=== PATIENT | female | born 1945 | race Caucasian/White ===

== ENCOUNTER 2020-12-28 14:38 | Emergency (ER) | payer MEDICARE, OTHER ==
[2020-12-28] MEDS ORDERED: Ondansetron 4 MG Tab.DIS PO ONE (15:05)
[2020-12-28] MEDS ORDERED: Meclizine 12.5 MG Tab PO ONE ×2 (15:05→15:06)
--- NOTE | 2020-12-28 15:25 | EDM.PDOC ---
ED HPI GENERAL MEDICAL PROBLEM - General Chief Complaint: Head Injury Stated Complaint: FELL DOWN STEPS Time Seen by Provider: 12/28/20 15:00 Source of Information: Reports: Patient, RN, RN Notes Reviewed History Limitations: Reports: No Limitations - History of Present Illness INITIAL COMMENTS - FREE TEXT/NARRATIVE: Mica is a 75 y/o female who presents to the ED via personal vehicle for complaints of fall down two steps and is now bleeding from her posterior scalp. The patient notes she tripped while descending her stairs after her shoe became caught. She denies loss of consciousness but does note she struck her head. She is not on blood thinners. The patient reports dizziness and nausea since the event. She denies projectile vomiting or vision changes. She denies history of head trauma. The patient does report pain to her right posterior wrist and denies pain to all other areas of her body. She has full sensory and motor function to her right wrist and distal to the pain. - Related Data Allergies Allergy/AdvReac Type Severity Reaction Status Date / Time Sulfa (Sulfonamide Allergy Other Verified 12/28/20 14:57 Antibiotics) diphenhydramine AdvReac Other Verified 12/28/20 14:57 [From Benadryl] meperidine [From Demerol] AdvReac Other Verified 12/28/20 14:57 Past Medical History Cardiovascular History: Reports: High Cholesterol, Hypertension Social & Family History - Family History Family Medical History: No Pertinent Family History - Tobacco Use Tobacco Use Status *Q: Current Some Day Tobacco User Years of Tobacco use: 50 Packs/Tins Daily: 0.5 - Caffeine Use Caffeine Use: Reports: Coffee - Recreational Drug Use Recreational Drug Use: No ED ROS GENERAL - Review of Systems Review Of Systems: Comprehensive ROS is negative, except as noted in HPI. ED EXAM, HEAD INJURY - Physical Exam Exam: See Below Exam Limited By: No Limitations General Appearance: Alert, Mild Distress, Other (Eyes closed due to dizziness) Head: Normocephalic, Scalp Lacerations (5mm superficial laceration to posterior scalp), Scalp Swelling (Surrounding laceration), Scalp Tenderness. No: Scalp Abrasions, Scalp Ecchymosis, Scalp Hematoma, Active Bleeding, Paul's Sign, Flap, Facial Abrasions, Facial Ecchymosis, Facial Lacerations, Facial Swelling, Sinus Tenderness, Facial Tenderness, Raccoon Eyes Nexus Criteria: No: Posterior, Midline Cervical Tenderness, Evidence of Intoxication, Altered Level of Consciousness, Focal Neurological Deficit, Painful Distraction Injuries Eyes: Bilateral Eye: Nystagmus (Jerk with lateral gaze), PERRL (3mm) Ears: Normal External Exam, Normal Canal, Hearing Grossly Normal, Normal TMs Nose: Normal Inspection, Normal Mucousa, No Blood Throat/Mouth: Normal Lips, Normal Teeth, Normal Gums, Normal Oropharynx, Normal Voice, No Airway Compromise, Dental Tenderness (To right jaw) Neck: Full Range of Motion, Normal Alignment, Normal Inspection, Stiff Neck (To right). No: Limited Range of Motion, Muscle Spasm, Painful Range of Motion, Spinous Processes Tender, Tender Lateral, Tender Midline Respiratory: No Respiratory Distress, Lungs Clear, Normal Breath Sounds, No Accessory Muscle Use, Chest Non-Tender Cardiovascular: Normal Peripheral Pulses, Regular Rate, Rhythm, No Edema, No Gal lop, No JVD, No Murmur, No Rub GI/Abdominal Exam: Normal Bowel Sounds, Soft, Non-Tender, No Distention, No Abnormal Bruit, No Mass, Pelvis Stable Back Exam: Normal Inspection, Full Range of Motion Extremities: Normal Range of Motion, Normal Capillary Refill, Arm Pain (To right posterior wrist), Redness (To all knuckels; Patient reports history of RA). No: Joint Swelling, Increased Warmth, Mottled, Pallor Neurologic: shrub planter II-XII nml As Tested, No Motor/Sensory Deficits, Alert, Normal Mood/Affect, Oriented x 3, Other (Dizziness). No: Abnormal Gait, Aphasia, Facial Droop, Motor Weakness, Disoriented x 3 Skin: Normal Color, Warm/Dry. No: Diaphoresis, Mottled, Pallor - Freedom Coma Score Best Eye Response (Freedom): (4) Open Spontaneously Best Verbal Response (Jordin): (5) Oriented Best Motor Response (Jordin): (6) Obeys Commands Course - Vital Signs Last Recorded V/S: Last Vital Signs Temp 97.2 F 12/28/20 14:45 Pulse 65 12/28/20 14:45 Resp 16 12/28/20 14:45 BP 173/94 H 12/28/20 14:45 Pulse Ox 100 12/28/20 14:45 - Orders/Labs/Meds Meds: Medications Discontinued Medications Generic Name Dose Route Start Last Admin Trade Name Freq PRN Reason Stop Dose Admin Meclizine HCl 12.5 mg 12/28/20 15:05 Meclizine 12.5 Mg Tab PO 12/28/20 15:06 ONETIME ONE Meclizine HCl 12.5 mg 12/28/20 15:06 Meclizine 12.5 Mg Tab PO 12/28/20 15:07 ONETIME ONE Ondansetron HCl 4 mg 12/28/20 15:05 12/28/20 15:16 Ondansetron 4 Mg Tab.Dis PO 12/28/20 15:06 4 mg ONETIME ONE Administration - Radiology Interpretation Free Text/Narrative:: [facility] Final Radiology Report Call: [phone] assistance Online chat: [email or web address] Name: MICA REYES Age: 75Years F Date: 12/28/2020 SSN: -- : 1945 Study: CT HEAD WO CONT Requesting Physician: Rachel Cm Images: 146 Addl Studies: Provided Clinical History: Fall down two stairs, struck head Contrast: Without Contrast Medium: Contrast Amount: Contrast Method: Page 1 of 2 PROCEDURE INFORMATION: Exam: CT Head Without Contrast Exam date and time: 12/28/2020 3:28 PM Age: 75 years old Clinical indication: Injury or trauma; Fall; Blunt trauma (contusions or hematomas); Consciousness not specified; Additional info: Fall down two stairs, struck head TECHNIQUE: Imaging protocol: Computed tomography of the head without contrast. Radiation optimization: All CT scans at this facility use at least one of these dose optimization techniques: automated exposure control; mA and/or kV adjustment per patient size (includes targeted exams where dose is matched to clinical indication); or iterative reconstruction. COMPARISON: No relevant prior studies available. FINDINGS: Brain: Age-related atrophy and chronic white matter ischemic changes, with no evidence of an acute intracranial abnormality. No hemorrhage, mass effect or midline shift. Cerebral ventricles: No ventriculomegaly. Paranasal sinuses: Visualized sinuses are unremarkable. No fluid levels. Mastoid air cells: Visualized mastoid air cells are well aerated. Bones/joints: No acute fracture. Soft tissues: Soft tissue swelling noted right posterior parietal region. IMPRESSION: 1. Soft tissue swelling noted right posterior parietal region. 2. Age-related atrophy and chronic white matter ischemic changes, with no rashawn dence of an acute intracranial abnormality. 3. No hemorrhage, mass effect or midline shift. Thank you for allowing us to participate in the care of your patient. Dictated and Authenticated by: Rajesh Nam DO 12/28/2020 3:45 PM Central Time ([place] & [place]) [facility] - [facility] Final Radiology Report Call: [phone] assistance Online chat: [email or web address] Name: MICA REYES Age: 75Years F Date: 12/28/2020 SSN: -- : 1945 Study: CR WRIST COMP MIN 3V RT Requesting Physician: Rachel Cm Images: 3 Addl Studies: Provided Clinical History: Fall down two stairs, struck head Contrast: Contrast Medium: Contrast Amount: Contrast Method: CONFIDENTIALITY STATEMENT This report is intended only for use by the referring physician, and only in accordance with law. If you received this in error, call [phone]. Page 1 of 1 PROCEDURE INFORMATION: Exam: XR Right Wrist Exam date and time: 12/28/2020 3:31 PM Age: 75 years old Clinical indication: Pain; Wrist; Right; Additional info: Fall down two stairs, struck head TECHNIQUE: Imaging protocol: XR Right wrist. Views: 3 or more views. COMPARISON: No relevant prior studies available. FINDINGS: Bones/joints: There is no evidence of acute fracture. There is no evidence of joint malalignment or dislocation. Soft tissues: There are no soft tissue masses or fluid collections. IMPRESSION: 1. No evidence of acute fracture. 2. No evidence of acute dislocation. Thank you for allowing us to participate in the care of your patient. Dictated and Authenticated by: Rajesh Nam DO 12/28/2020 3:49 PM Central Time ([place] & [place]) - Re-Assessments/Exams Free Text/Narrative Re-Assessment/Exam: 12/28/20 Patient verbalized improvement in nausea following Zofran. She refused Meclizine given history to diphenhydramine. Findings of examination and imaging reviewed with patient. Discussed supportive cares for concussion and unsutured/unstapled scalp laceration. Discussed possible need for reevaluation of right wrist pain, should symptoms persist past 10 days. Red flag signs and symptoms which would warrant reevaluation reviewed. Patient verbalized understanding and agreement with the plan of care. Departure - Departure Time of Disposition: 16:36 Disposition: Home, Self-Care 01 Condition: Good Clinical Impression: Right wrist pain Fall down stairs Qualifiers: Encounter type: initial encounter Qualified Code(s): W10.8XXA - Fall (on) (from) other stairs and steps, initial encounter Concussion Qualifiers: Encounter type: initial encounter Loss of consciousness presence/duration: without LOC Qualified Code(s): S06.0X0A - Concussion without loss of consciousness, initial encounter - Discharge Information *PRESCRIPTION DRUG MONITORING PROGRAM REVIEWED*: Not Applicable *COPY OF PRESCRIPTION DRUG MONITORING REPORT IN PATIENT GUALBERTO: Not Applicable Instructions: Concussion, Adult, [id number] Forms: ED Department Discharge Additional Instructions: 1.) You may take ibuprofen (Advil/Motrin) 400mg every six hours, as pain and swelling persists. You may also take acetaminophen (Tylenol) 650mg every six hours, as pain persists. You may stagger these medications so you are receiving a dose every three hours. 2.) You may apply ice to the affected area, as swelling persists; 20 minutes on every hour. 3.) Follow up with primary care provider, or return to the emergency department, with worsening symptoms, vision changes, projectile vomiting, or symptoms of dizziness that persist past 3 days. 4.) Follow up with primary care provider for further evaluation of right wrist should pain persist past 7-10 days. Sepsis Event Note (ED) - Evaluation Sepsis Screening Result: No Definite Risk - Focused Exam Vital Signs: Vital Signs Temp Pulse Resp BP Pulse Ox 12/28/20 14:45 97.2 F 65 16 173/94 H 100
--- NOTE | 2020-12-28 15:46 | CT ---
PROCEDURE INFORMATION: Exam: CT Head Without Contrast Exam date and time: 12/28/2020 3:28 PM Age: 75 years old Clinical indication: Injury or trauma; Fall; Blunt trauma (contusions or hematomas); Consciousness not specified; Additional info: Fall down two stairs, struck head TECHNIQUE: Imaging protocol: Computed tomography of the head without contrast. Radiation optimization: All CT scans at this facility use at least one of these dose optimization techniques: automated exposure control; mA and/or kV adjustment per patient size (includes targeted exams where dose is matched to clinical indication); or iterative reconstruction. COMPARISON: No relevant prior studies available. FINDINGS: Brain: Age-related atrophy and chronic white matter ischemic changes, with no evidence of an acute intracranial abnormality. No hemorrhage, mass effect or midline shift. Cerebral ventricles: No ventriculomegaly. Paranasal sinuses: Visualized sinuses are unremarkable. No fluid levels. Mastoid air cells: Visualized mastoid air cells are well aerated. Bones/joints: No acute fracture. Soft tissues: Soft tissue swelling noted right posterior parietal region. IMPRESSION: 1. Soft tissue swelling noted right posterior parietal region. 2. Age-related atrophy and chronic white matter ischemic changes, with no evidence of an acute intracranial abnormality. 3. No hemorrhage, mass effect or midline shift.
--- NOTE | 2020-12-28 15:49 | CR ---
PROCEDURE INFORMATION: Exam: XR Right Wrist Exam date and time: 12/28/2020 3:31 PM Age: 75 years old Clinical indication: Pain; Wrist; Right; Additional info: Fall down two stairs, struck head TECHNIQUE: Imaging protocol: XR Right wrist. Views: 3 or more views. COMPARISON: No relevant prior studies available. FINDINGS: Bones/joints: There is no evidence of acute fracture. There is no evidence of joint malalignment or dislocation. Soft tissues: There are no soft tissue masses or fluid collections. IMPRESSION: 1. No evidence of acute fracture. 2. No evidence of acute dislocation.
== END 2020-12-28 17:02 | disposition home or self-care (01) ==
LOC: DL.ED 14:38
DX: S06.0X0A Concussion without loss of consciousness, initial encounter (principal); M25.531 Pain in right wrist; I10 Essential (primary) hypertension; Z88.5 Allergy status to narcotic agent; Z88.2 Allergy status to sulfonamides; Z88.8 Allergy status to other drugs, medicaments and biological substances; Z72.0 Tobacco use; W10.9XXA Fall (on) (from) unspecified stairs and steps, initial encounter
CPT/HCPCS: 70450; 73110; 99283; 99284; A9270

== ENCOUNTER 2021-11-10 08:25 | Day surgery (SDC) | payer MEDICARE, OTHER ==
[2021-11-10] MEDS ORDERED: Sodium Chloride 0.9% 10 ML Syringe IV ONE (08:26)
[2021-11-10] MEDS ORDERED: Midazolam 1 MG/ML 2 ML SDV IV ONE (08:26)
[2021-11-10] MEDS ORDERED: Dexamethasone 4 MG/ML SDV IV ONE (08:26)
[2021-11-10] MEDS ORDERED: Acetaminophen/Codeine 300-30 MG Tab PO PRN (08:30)
[2021-11-10] MEDS ORDERED: Timolol Maleate 0.5% Ophth Soln 5 ML Bottle EYELF ONE (08:30)
[2021-11-10] MEDS ORDERED: Ondansetron 4 MG/2 ML SDV IVPUSH PRN (08:30)
[2021-11-10] MEDS ORDERED: Acetaminophen 325 MG Tab PO PRN (08:30)
[2021-11-10] MEDS ORDERED: Povidone-Iodine 5% Sterile Ophth Soln 30 ML Bottle EYELF ONE ×2 (08:30→09:43)
[2021-11-10] MEDS ORDERED: Sodium Chloride 0.9% 10 ML Syringe FLUSH PRN (08:30)
[2021-11-10] MEDS ORDERED: Moxifloxacin 0.5% Ophth Soln 3 ML Bottle EYELF ONE (08:30)
[2021-11-10] MEDS ORDERED: Phenylephrine 10% Ophth Soln 5 ML Bot EYELF ONE (08:30)
[2021-11-10] MEDS ORDERED: Tropicamide 1% Ophth Soln 15 ML Bottle EYELF ONE (08:30)
[2021-11-10] MEDS ORDERED: Cataract Ophth Solution EYELF ONE (08:30)
[2021-11-10] MEDS ORDERED: Proparacaine 0.5% Ophth Soln 15 ML Bottle EYELF ONE (08:30)
[2021-11-10] MEDS ORDERED: Tetracaine HCl/PF 0.5% 4 ML Bottle EYELF ONE (09:42)
[2021-11-10] MEDS ORDERED: Diclofenac Sodium 0.1% Ophth Soln 5 ML Bottle EYELF ONE (09:43)
[2021-11-10] MEDS ORDERED: Lidocaine 1% 30 ML SDV ONE (09:43)
[2021-11-10] MEDS ORDERED: Apraclonidine 0.5% Ophth Soln 5 ML Bot EYELF ONE (09:43)
[2021-11-10] MEDS ORDERED: Balanced Salt Solution Ophth Irrig 500 ML Bottle IOCULAR ONE (09:44)
[2021-11-10] MEDS ORDERED: Chondroitin Sulfate/Hyaluronate Sodium Ophth Inj 0.5 ML Syringe IOCULAR ONE (09:44)
[2021-11-10] MEDS ORDERED: Vancomycin 500 MG SDV EYELF ONE (09:44)
[2021-11-10] MEDS ORDERED: Dexamethasone/Neomycin/Polymyxin B Ophth Oint 3.5 GM Tube EYELF ONE (09:44)
== END 2021-11-10 10:56 | disposition home or self-care (01) ==
LOC: DL.SDS 08:25
PROVIDERS: ATTEND Ophthalmology
DX: H25.812 Combined forms of age-related cataract, left eye (principal); E78.5 Hyperlipidemia, unspecified; Z88.2 Allergy status to sulfonamides; Z79.899 Other long term (current) drug therapy; Z88.8 Allergy status to other drugs, medicaments and biological substances
CPT/HCPCS: 00142; A9270-GY; J1100; J2250; J3370; J3490; V2632

== ENCOUNTER 2021-11-24 08:22 | Day surgery (SDC) | payer MEDICARE, OTHER ==
[2021-11-24] MEDS ORDERED: Midazolam 1 MG/ML 2 ML SDV IV ONE (08:23)
[2021-11-24] MEDS ORDERED: Dexamethasone 4 MG/ML SDV IV ONE (08:23)
[2021-11-24] MEDS ORDERED: Acetaminophen 325 MG Tab PO PRN (08:30)
[2021-11-24] MEDS ORDERED: Moxifloxacin 0.5% Ophth Soln 3 ML Bottle EYERT ONE (08:30)
[2021-11-24] MEDS ORDERED: Timolol Maleate 0.5% Ophth Soln 5 ML Bottle EYERT ONE (08:30)
[2021-11-24] MEDS ORDERED: Sodium Chloride 0.9% 10 ML Syringe FLUSH PRN (08:30)
[2021-11-24] MEDS ORDERED: Cataract Ophth Solution EYERT ONE (08:30)
[2021-11-24] MEDS ORDERED: Proparacaine 0.5% Ophth Soln 15 ML Bottle EYERT ONE (08:30)
[2021-11-24] MEDS ORDERED: Phenylephrine 10% Ophth Soln 5 ML Bot EYERT ONE (08:30)
[2021-11-24] MEDS ORDERED: Ondansetron 4 MG/2 ML SDV IVPUSH PRN (08:30)
[2021-11-24] MEDS ORDERED: Povidone-Iodine 5% Sterile Ophth Soln 30 ML Bottle EYERT ONE ×2 (08:30→09:30)
[2021-11-24] MEDS ORDERED: Acetaminophen/Codeine 300-30 MG Tab PO PRN (08:30)
[2021-11-24] MEDS ORDERED: Tropicamide 1% Ophth Soln 15 ML Bottle EYERT ONE (08:30)
[2021-11-24] MEDS ORDERED: Tetracaine HCl/PF 0.5% 4 ML Bottle EYERT ONE (09:30)
[2021-11-24] MEDS ORDERED: Lidocaine 1% 30 ML SDV ONE (09:30)
[2021-11-24] MEDS ORDERED: Apraclonidine 0.5% Ophth Soln 5 ML Bot EYERT ONE (09:30)
[2021-11-24] MEDS ORDERED: Balanced Salt Solution Ophth Irrig 500 ML Bottle IOCULAR ONE (09:31)
[2021-11-24] MEDS ORDERED: Dexamethasone/Neomycin/Polymyxin B Ophth Oint 3.5 GM Tube EYERT ONE (09:31)
[2021-11-24] MEDS ORDERED: Diclofenac Sodium 0.1% Ophth Soln 5 ML Bottle EYERT ONE (09:31)
[2021-11-24] MEDS ORDERED: Chondroitin Sulfate/Hyaluronate Sodium Ophth Inj 0.5 ML Syringe IOCULAR ONE (09:32)
[2021-11-24] MEDS ORDERED: Vancomycin 500 MG SDV EYERT ONE (09:32)
== END 2021-11-24 10:26 | disposition home or self-care (01) ==
LOC: DL.SDS 08:22
PROVIDERS: ATTEND Ophthalmology
DX: H25.811 Combined forms of age-related cataract, right eye (principal); Z87.891 Personal history of nicotine dependence; Z79.899 Other long term (current) drug therapy; Z88.2 Allergy status to sulfonamides; Z88.8 Allergy status to other drugs, medicaments and biological substances
CPT/HCPCS: A9270-GY; J1100; J2250; J3370; V2632

== ENCOUNTER 2023-09-30 14:21 | Inpatient (IN) | payer MEDICARE, OTHER ==
[2023-09-30] MEDS: cefTRIAXone 1 GM Vial IVPUSH ONE (15:10)
[2023-09-30 15:16] LABS: BASOPHILS PERCENT AUTO 0.4 % (0.0-1.0); EOSINOPHILS PERCENT AUTO 0.6 % (1.0-3.0); HEMATOCRIT 42.7 % (37.0-47.0); HEMOGLOBIN 13.9 g/dL (12.0-16.0); LYMPHOCYTES PERCENT AUTO 24.6 % (20.5-50.1); MEAN CORPUSCULAR HEMOGLOBIN 30.3 pg (27.0-34.0); MEAN CORPUSCULAR HGB CONC 32.6 g/dL (33.0-35.0); MONOCYTES PERCENT AUTO 9.1 % (2-8); NEUTROPHILS PERCENT AUTO 65.3 % (42.2-75.2); PLATELET COUNT,PLT 327 10^3/uL (150-450); RED BLOOD CELL COUNT 4.59 10^6/uL (4.2-5.4); WHITE BLOOD CELL COUNT,WBC 11.3 10^3/uL (5.0-10.0)
[2023-09-30] MEDS: Iopamidol 612 MG/ML 100 ML Bottle IVPUSH ONE (15:24)
[2023-09-30 15:41] LABS: A/G RATIO 1.1; ALANINE AMINOTRANSFERASE,ALT 20 U/L (14-59); ALBUMIN 4.4 g/dL (3.4-5.0); ALKALINE PHOSPHATASE 82 U/L (46-116); ANION GAP 14.1 mEq/L (7-13); ASPARTATE AMNIOTRANSFERASE,AST 25 U/L (15-37); BILIRUBIN TOTAL 0.9 mg/dL (0.2-1.0); BLOOD UREA NITROGEN,BUN 17 mg/dL (7-18); BUN/CREATININE RATIO 18.5 (No establ ref range); CALCIUM 9.7 mg/dL (8.5-10.1); CARBON DIOXIDE,CO2 29 mmol/L (21-32); CHLORIDE,CL 99 mmol/L (98-107); CREATININE 0.92 mg/dL (0.55-1.02); GLUCOSE RANDOM 97 mg/dL (70-99); POTASSIUM,K 4.1 mmol/L (3.5-5.1); PROTEIN TOTAL,TP 8.4 g/dL (6.4-8.2); SODIUM,NA 138 mmol/L (136-145)
[2023-09-30 15:43] LABS: ESTIMATED GFR 64 mL/min (>=60)
[2023-09-30] MEDS: Sodium Chloride 0.9% 10 ML Syringe FLUSH PRN (16:46)
[2023-09-30] MEDS: Ketorolac 30 MG/ML SDV IVPUSH ONE (17:02)
[2023-09-30] MEDS: Diphtheria,Pertussis(Acell),Tetanus Vaccine 0.5 ML Syringe IM ONE (17:03)
[2023-09-30] MEDS: HYDROmorphone 0.5 MG/0.5 ML Syringe IVPUSH ONE (17:04)
[2023-09-30] MEDS ORDERED: Sennosides/Docusate Sodium 50-8.6 MG Tab PO PRN (18:08)
[2023-09-30] MEDS ORDERED: Albuterol/Ipratropium 3.0-0.5 MG/3 ML Neb Soln NEB PRN (18:08)
[2023-09-30] MEDS ORDERED: Magnesium Hydroxide 400 MG/5 ML Susp 30 ML Cup PO PRN (18:08)
[2023-09-30] MEDS ORDERED: Ondansetron 4 MG/2 ML SDV IVPUSH PRN (18:08)
[2023-09-30] MEDS ORDERED: Polyethylene Glycol 3350 Powder 17 GM Packet PO PRN (18:08)
[2023-09-30] MEDS ORDERED: Naloxone 2 MG/2 ML Syringe IVPUSH PRN (18:08)
[2023-09-30] MEDS ORDERED: Ketorolac 30 MG/ML SDV IVPUSH PRN (18:08)
[2023-09-30] MEDS ORDERED: Melatonin 3 MG Tab PO PRN (18:33)
[2023-09-30] MEDS: Saccharomyces Boulardii (Probiotic) 250 MG Cap PO SCH (20:07)
[2023-09-30] MEDS: Naproxen 250 MG Tab PO SCH (20:07)
[2023-09-30] MEDS: Famotidine 20 MG Tab PO SCH (20:08)
[2023-09-30] MEDS: Acetaminophen 325 MG Tab PO PRN (20:08)
[2023-09-30] MEDS: HYDROmorphone 0.5 MG/0.5 ML Syringe IVPUSH PRN (21:00)
[2023-10-01] MEDS: Acetaminophen/oxyCODONE 325-5 MG Tab PO PRN (01:42)
[2023-10-01 06:47] LABS: BASOPHILS PERCENT AUTO 0.5 % (0.0-1.0); HEMATOCRIT 35.4 % (37.0-47.0); HEMOGLOBIN 11.8 g/dL (12.0-16.0); LYMPHOCYTES PERCENT AUTO 20.2 % (20.5-50.1); MEAN CORPUSCULAR HEMOGLOBIN 31.1 pg (27.0-34.0); MEAN CORPUSCULAR HGB CONC 33.3 g/dL (33.0-35.0); MEAN CORPUSCULAR VOLUME 93.4 fL (80-100); MONOCYTES PERCENT AUTO 10.7 % (2-8); NEUTROPHILS PERCENT AUTO 67.6 % (42.2-75.2); PLATELET COUNT,PLT 279 10^3/uL (150-450); RED BLOOD CELL COUNT 3.79 10^6/uL (4.2-5.4); WHITE BLOOD CELL COUNT,WBC 10.7 10^3/uL (5.0-10.0)
[2023-10-01 07:20] LABS: A/G RATIO 1.1; ALBUMIN 3.7 g/dL (3.4-5.0); ANION GAP 10.2 mEq/L (7-13); BILIRUBIN TOTAL 0.8 mg/dL (0.2-1.0); BUN/CREATININE RATIO 23.9 (No establ ref range); C-REACTIVE PROTEIN 1.59 ng/dL (<=0.50); CALCIUM 8.9 mg/dL (8.5-10.1); CREATININE 0.92 mg/dL (0.55-1.02); EST CRCL DRUG DOSING (CG) 45.35 mL/min; POTASSIUM,K 4.2 mmol/L (3.5-5.1)
[2023-10-01] MEDS: cefTRIAXone 1 GM Vial IVPUSH SCH (09:15)
[2023-10-01] MEDS: HYDROmorphone 1 MG/ML Syringe IVPUSH PRN (10:54)
[2023-10-01] MEDS: metroNIDAZOLE/Normal Saline 500 MG in Premix Bag 1 BAG IV SCH (10:57)
[2023-10-01] MEDS: cefTRIAXone 1 GM Vial IVPUSH ONE (12:11)
[2023-10-01] MEDS: cefTRIAXone 2 GM Vial IVPUSH SCH (13:26)
[2023-10-01] MEDS: Ketorolac 30 MG/ML SDV IVPUSH PRN (23:18)
[2023-10-02 06:43] LABS: BASOPHILS PERCENT AUTO 0.5 % (0.0-1.0); EOSINOPHILS PERCENT AUTO 1.2 % (1.0-3.0); HEMATOCRIT 32.8 % (37.0-47.0); HEMOGLOBIN 10.9 g/dL (12.0-16.0); LYMPHOCYTES PERCENT AUTO 22.3 % (20.5-50.1); MEAN CORPUSCULAR HEMOGLOBIN 31.1 pg (27.0-34.0); MEAN CORPUSCULAR HGB CONC 33.2 g/dL (33.0-35.0); MEAN CORPUSCULAR VOLUME 93.7 fL (80-100); MONOCYTES PERCENT AUTO 10.7 % (2-8); NEUTROPHILS PERCENT AUTO 65.3 % (42.2-75.2); PLATELET COUNT,PLT 251 10^3/uL (150-450); WHITE BLOOD CELL COUNT,WBC 8.9 10^3/uL (5.0-10.0)
[2023-10-02 06:54] LABS: ALBUMIN 3.2 g/dL (3.4-5.0); ANION GAP 12.3 mEq/L (7-13); BILIRUBIN TOTAL 0.4 mg/dL (0.2-1.0); BUN/CREATININE RATIO 21.2 (No establ ref range); C-REACTIVE PROTEIN 3.93 ng/dL (<=0.50); CALCIUM 8.4 mg/dL (8.5-10.1); CREATININE 0.85 mg/dL (0.55-1.02); EST CRCL DRUG DOSING (CG) 49.08 mL/min; POTASSIUM,K 4.3 mmol/L (3.5-5.1); PROTEIN TOTAL,TP 6.5 g/dL (6.4-8.2)
[2023-10-02 06:55] LABS: A/G RATIO 0.97
[2023-10-02] MEDS ORDERED: Benzocaine/Cetylpyridinium/Menthol Lozenge MUCMEM PRN (07:59)
[2023-10-02] MEDS: cefTRIAXone 2 GM Vial IVPUSH SCH (12:59)
[2023-10-03 06:44] LABS: ALBUMIN 3.2 g/dL (3.4-5.0); ANION GAP 14.1 mEq/L (7-13); BILIRUBIN TOTAL 0.5 mg/dL (0.2-1.0); BUN/CREATININE RATIO 27.6 (No establ ref range); C-REACTIVE PROTEIN 3.03 ng/dL (<=0.50); CALCIUM 8.2 mg/dL (8.5-10.1); CREATININE 0.76 mg/dL (0.55-1.02); EST CRCL DRUG DOSING (CG) 54.9 mL/min; POTASSIUM,K 4.1 mmol/L (3.5-5.1); PROTEIN TOTAL,TP 6.4 g/dL (6.4-8.2)
[2023-10-03 06:49] LABS: BASOPHILS PERCENT AUTO 0.4 % (0.0-1.0); EOSINOPHILS PERCENT AUTO 1.6 % (1.0-3.0); HEMATOCRIT 32.7 % (37.0-47.0); HEMOGLOBIN 10.7 g/dL (12.0-16.0); LYMPHOCYTES PERCENT AUTO 29.3 % (20.5-50.1); MEAN CORPUSCULAR HEMOGLOBIN 30.6 pg (27.0-34.0); MEAN CORPUSCULAR HGB CONC 32.7 g/dL (33.0-35.0); MEAN CORPUSCULAR VOLUME 93.4 fL (80-100); MONOCYTES PERCENT AUTO 10.6 % (2-8); NEUTROPHILS PERCENT AUTO 58.1 % (42.2-75.2); PLATELET COUNT,PLT 254 10^3/uL (150-450); WHITE BLOOD CELL COUNT,WBC 7.7 10^3/uL (5.0-10.0)
[2023-10-03] MEDS: traMADol 50 MG Tab PO PRN (09:00)
[2023-10-03] MEDS: Vancomycin 750 MG SDV IV SCH (11:38)
[2023-10-03] MEDS: Iopamidol 612 MG/ML 100 ML Bottle IVPUSH ONE (11:46)
[2023-10-03] MEDS ORDERED: metroNIDAZOLE 250 MG Tab PO SCH (13:30)
[2023-10-04] MEDS ORDERED: Vancomycin 750 MG SDV IV SCH (13:00)
== END 2023-10-03 14:45 | disposition home or self-care (01) | DRG 603 ==
LOC: DL.ED 14:21 → DL.MS 16:52
PROVIDERS: ADMIT Internal Medicine; ATTEND Emergency Medicine
DX: L03.113 Cellulitis of right upper limb (principal); E78.00 Pure hypercholesterolemia, unspecified; I10 Essential (primary) hypertension; M19.90 Unspecified osteoarthritis, unspecified site; M54.2 Cervicalgia; G89.29 Other chronic pain; G43.909 Migraine, unspecified, not intractable, without status migrainosus; H54.7 Unspecified visual loss; Z96.641 Presence of right artificial hip joint; D72.829 Elevated white blood cell count, unspecified; Z88.2 Allergy status to sulfonamides; Z88.8 Allergy status to other drugs, medicaments and biological substances; Z79.899 Other long term (current) drug therapy; Z90.89 Acquired absence of other organs; Z98.49 Cataract extraction status, unspecified eye; Z98.890 Other specified postprocedural states; W55.01XA Bitten by cat, initial encounter
CPT/HCPCS: 36415; 73201; 80053; 83605; 85025; 87040 ×2; 96365; 96375; 99284 ×2; J0696; J3370; J7050; Q9967; 73202-RT; 80202; 83735; 86140; 90715; 97165-GO; 99222; 99232; 99238; A9270-GY; J1170; J1836; J1885; J3490